=== PATIENT | male | born 1990 | race Two or more races ===

== ENCOUNTER → 2020-01-31 | Emergency (ER) | payer MEDICAID, OTHER ==
[~2020-01-31] VITALS: Ht 177.8 cm; Wt 72.6 kg
[2020-01-31 01:53] VITALS: BP 165/91
== END | disposition left against medical advice (07) ==
LOC: ER 01:05
DX: R07.0 Pain in throat (principal); Z53.21 Procedure and treatment not carried out due to patient leaving prior to being seen by health care provider